=== PATIENT | female | born 1950 | race Caucasian/White ===

== ENCOUNTER 2017-10-15 18:11 | Emergency (ER) | payer MEDICARE, MEDICAID ==
[2017-10-15] MEDS ORDERED: ORPHENADRINE CITRATE 60MG/2ML VIAL IM ONE (18:39)
--- NOTE | 2017-10-15 18:50 | Emergency Department Record ---
History of Present Illness - General Chief complaint: Pain Stated complaint: LT HIP/FLANK PAIN Time Seen by Provider: 10/15/17 18:31 Source: Patient Mode of Arrival: Ambulatory Limitations: No limitations - History of Present Illness Initial comments: The patient is here due to chronic L low back pain for about a year. It has been worsening for the last month. The pain is a sharp aching pain in the L lower back with is worse with any movement and walking and bending. She denies any leg numbness, tingling, weakness or any bowel or bladder issues. The patient did have a spinal stimulator placed in Nov of last year for this problem in [place]. There is no reported fever, chills, dysuria, AP or vomiting. Onset/Timin -: Year(s) Location: Left, Other History of Same: No Severity scale (1-10): 9 Improves with: Nothing Worsens with: Exertion - Related Data Home Medications Medication Instructions Recorded Confirmed Last Taken Aspirin [Aspir-Low] 81 mg PO DAILY 10/15/17 10/15/17 Unknown Carbidopa/Levodopa [Sinemet 25-100 1 each PO BID 10/15/17 10/15/17 Unknown mg Tablet] Duloxetine HCl [Cymbalta] 30 mg PO DAILY 10/15/17 10/15/17 Unknown Gabapentin [Neurontin] 300 mg PO DAILY 10/15/17 10/15/17 Unknown Hydrocodone/Acetaminophen [[place] 1 tab PO Q8H PRN 10/15/17 10/15/17 Unknown 10mg/325mg] Levothyroxine Sodium [Synthroid] 75 mcg PO DAILY 10/15/17 10/15/17 Unknown Magnesium Oxide [Magnesium] 250 mg PO BID 10/15/17 10/15/17 Unknown Omeprazole [Prilosec] 20 mg PO DAILY 10/15/17 10/15/17 Unknown Ranitidine HCl [Zantac] 300 mg PO DAILY 10/15/17 10/15/17 Unknown Previous Rx's Medication Instructions Recorded Cyclobenzaprine HCl [Flexeril] 10 mg PO TID PRN #20 tablet 10/15/17 Allergies Allergy/AdvReac Type Severity Reaction Status Date / Time adhesive tape Allergy RASH Verified 10/15/17 18:26 codeine Allergy ANAPHYLAXIS Verified 10/15/17 18:26 sulfamethoxazole Allergy VOMITING Verified 10/15/17 18:26 [From Bactrim] trimethoprim [From Bactrim] Allergy VOMITING Verified 10/15/17 18:26 Travel Screening - Travel/Exposure Within Last 30 Days Have you traveled within the last 30 days?: No - Travel/Exposure Within Last Year Have you traveled outside the [place] in the last year?: No - Additonal Travel Details Have you been exposed to anyone with a communicable illness?: No - Travel Symptoms Symptom Screening: None Review of Systems Constitutional: Denies: Chills, Fever Eyes: Denies: Eye discharge ENT: Denies: Congestion Respiratory: Denies: Cough, Dyspnea Past Medical History - SOCIAL HISTORY Smoking Status: Never smoker Alcohol Use: None Drug Use: None - RESPIRATORY Hx Respiratory Disorders: No - CARDIOVASCULAR Hx Cardio Disorders: Yes Hx Heart Attack: Yes (silent CO) - NEURO Hx Neuro Disorders: Yes Hx Headaches: Yes Comment:: RLS - GI Hx GI Disorders: No - Hx Genitourinary Disorders: No - ENDOCRINE Hx Endocrine Disorders: Yes Hx Thyroid Disease: Yes - MUSCULOSKELETAL Hx Musculoskeletal Disorders: Yes - PSYCH Hx Psych Problems: Yes Hx Anxiety: Yes Hx Depression: Yes - HEMATOLOGY/ONCOLOGY Hx Hematology/Oncology Disorders: No Family Medical History Any Significant Family History?: No Hx Diabetes: Father, Brother/Sister, Grandparents Physical Exam - General General Appearance: Alert, Oriented x3, Cooperative, No acute distress - Head Head exam: Atraumatic, Normocephalic, Normal inspection - Eye Eye exam: Normal appearance, PERRL - Neck Neck exam: Normal inspection, Full ROM. negative: Tenderness - Respiratory Respiratory exam: Normal lung sounds bilaterally. negative: Respiratory distress - Cardiovascular Cardiovascular Exam: Regular rate, Normal rhythm, Normal heart sounds - GI/Abdominal GI/Abdominal exam: Soft, Normal bowel sounds. negative: Tenderness - Extremities Extremities exam: Normal inspection, Full ROM, Normal capillary refill, Other ( Neg SLR.). negative: Tenderness - Back Back exam: Reports: Paraspinal tenderness (L lower lumbar paraspinal area and SI area. There is no overlying erythema, warmth, or swelling.). Denies: Vertebral tenderness Image of Body Front/Back: 1 - Area of pain and tenderness. - Neurological Neurological exam: Alert, Normal gait, Reflexes normal, Other (The patient is able to ambulate on her own with no difficulty. She has a cane and walker at home.). negative: Abnormal gait, Motor sensory deficit Course Vital Signs 10/15/17 18:17 Temperature 97.8 F Pulse Rate 91 H Respiratory 20 Rate Blood Pressure 111/54 Pulse Ox 96 - Reevaluation(s) Reevaluation #1: I did discuss the xrays and lab work with the patient. She is feeling better and is ambulating normally. I did advise her to see her PCP this week for further evaluation. She is to bring her lab tests to her PCP also. 10/15/17 19:41 Medical Decision Making - Data Complexity MDM Data: Labs Ordered and/or Reviewed, X-Ray Ordered and/or Reviewed - Lab Data Result diagrams: 10/15/17 19:09 10/15/17 19:09 - Radiology Data Radiology results: Report reviewed (LS Spine: Extensive DJD to the spine, neg for acute pathology.) Disposition Disposition: Discharge Clinical Impression: Chronic low back pain Qualifiers: Back pain laterality: left Sciatica presence: without sciatica Qualified Code(s ): M54.5 - Low back pain Disposition: Home, Self-Care Condition: (2) Stable Instructions: Chronic Back Pain (ED) Additional Instructions: Please take the Flexeril as directed and please see your family doctor this week for recheck. Please bring the lab results and discuss the renal insuffiency with your family doctor. Prescriptions: Cyclobenzaprine HCl [Flexeril] 10 mg PO TID PRN #20 tablet PRN Reason: Pain Forms: Patient Portal Access Time of Disposition: 19:43 Quality - Quality Measures Quality Measures: N/A - Blood Pressure Screening View Details: Yes Does Patient Have Any of the Following: No Blood Pressure Classification: Normal BP Reading Systolic Measurement: 109 Diastolic Measurement: 64 Screening for High Blood Pressure: < Normal BP, F/U Not Required > [[id number]]
[2017-10-15 19:15] LABS: BASO % 0.5 % (0-6); EOS % 7.6 % (0-6); HEMATOCRIT 38.6 % (35.0-47.0); HEMOGLOBIN 12.3 gm/dl (11.6-16.0); LYMPH % 35.6 % (16-45); MEAN CELL VOLUME 94.1 fl (81-97); MEAN CORPUSCULAR HGB CONC 31.9 g/dl (32-36); MONO % 9.3 % (0-9); PLATELET COUNT 269 K/uL (130-400); RED CELL DISTRIBUTION WIDTH 15.9 % (11.5-14.5); WHITE BLOOD COUNT W/O DIFF 6.6 K/uL (4.2-12.2)
[2017-10-15 19:28] LABS: CREATININE 1.4 mg/dL (0.5-0.9)
--- NOTE | 2017-10-17 16:03 | RADIOLOGY REPORT ---
EXAM: LUMBAR SPINE / AP LAT HISTORY: CHRONIC LOW BACK PAIN. TECHNIQUE: AP, lateral, and lateral spot views of the lumbar spine were obtained. COMPARISON: None. FINDINGS: A transitional segment is present at the S1 level with partial lumbarization on the right. Five [id number] lumbar vertebral segments were present. There is severe disc space narrowing of the L5-S1 level with associated endplate degenerative change. There is moderate disc space narrowing and endplate degenerative change at the L3-4 level. Facet arthropathy is present throughout but greatest from the L3 through the S1 levels. There is no acute compression fracture or spondylolisthesis. Visualized portions of the bony pelvis appear intact. IMPRESSION: 1. MULTILEVEL DEGENERATIVE DISC DISEASE AND FACET ARTHROPATHY, WHICH ARE GREATEST AT THE L5-S1 LEVEL. 2. NO ACUTE LUMBAR SPINE PATHOLOGY. JOB NUMBER: [id number] [facility]
== END 2017-10-15 19:52 | disposition home or self-care (01) ==
LOC: ER 18:11
DX: G89.29 Other chronic pain (principal); M54.5 Low back pain; I25.2 Old myocardial infarction
CPT/HCPCS: 72100; 80048; 85025; 96372; 99283; 99284; J2360